=== PATIENT | female | born 1985 | race Caucasian/White ===

== ENCOUNTER → 2022-04-03 | Outpatient (CLI) | payer BC, OTHER ==
[~2022-04-03] MED LIST: CYANOCOBALAMIN; IRON325 M1 PO; VITAMIN C1000 MG PO
[2022-04-03 11:21] LABS: HEMOGLOBIN 11.6 gm/dl (12.3-15.3); RED BLOOD COUNT 5.49 M/UL (4.00-5.10); WHITE BLOOD COUNT 9.6 K/UL (4.5-11.0)
== END ==
LOC: OPSV2 10:00
PROVIDERS: Obstetrics & Gynecology
DX: Z01.812 Encounter for preprocedural laboratory examination (principal); N93.9 Abnormal uterine and vaginal bleeding, unspecified
CPT/HCPCS: 81001; 85025

== ENCOUNTER → 2022-04-10 | Day surgery (SDC) | payer BC, OTHER | END | disposition home or self-care (01) | LOC: OR 05:26 | DX: N93.9 Abnormal uterine and vaginal bleeding, unspecified (principal); N85.00 Endometrial hyperplasia, unspecified; G47.30 Sleep apnea, unspecified; Z88.1 Allergy status to other antibiotic agents | CPT/HCPCS: 84703; J1100; J1170; J2001; J2250; J2405; J2704; J3010 ==